=== PATIENT | female | born 1950 | race Caucasian/White ===

== ENCOUNTER 2016-06-19 15:50 | Emergency (ER) | payer MEDICARE, BC ==
[2016-06-19 16:06] VITALS: BP 126/83
[2016-06-19] MEDS ORDERED: Acetaminophen/HYDROcodone 325-10 MG Tab PO ONE ×2 (16:54→17:45)
[2016-06-19] MEDS ORDERED: Promethazine 25 MG Tab PO ONE (16:54)
--- NOTE | 2016-06-19 17:39 | EDM.PDOC ---
Scribed by Abigail Mccabe 06/19/16 [id number] for Justus Lundberg MD ED HISTORY OF PRESENT ILLNESS - General Chief Complaint: Chest Pain Stated Complaint: feel hit the chest has pain [id number] Time Seen by Provider: 06/19/16 16:04 Source of Information: Reports: Patient, RN, RN notes reviewed History Limitations: Reports: No limitations - History of Present Illness INITIAL COMMENTS - FREE TEXT/NARRATIVE: Complaining of midsternal chest wall pain sustained from a fall yesterday. Patient reports that she tripped and fell on the corner of her deck steps and landed with a direct blow to her chest. Today she began having painful breathing. Symptom Onset Date: 06/18/16 Severity: severe Location, General: Reports: chest (wall) Quality: Reports: Ache Improves with: Reports: None Worsens with: Reports: None Associated Symptoms (General): Reports: no other symptoms - Related Data Allergies/ADRs: Allergies Allergy/AdvReac Type Severity Reaction Status Date / Time codeine Allergy Disorientat Verified 06/19/16 16:06 ion sulfamethoxazole Allergy Itching Verified 06/19/16 16:06 [From Bactrim] trimethoprim [From Bactrim] Allergy Itching Verified 06/19/16 16:06 Home Meds: Home Meds RABEprazole [Aciphex] 20 mg PO DAILY 10/10/13 [History] Triamterene/Hydrochlorothiazid [Triamterene-HCTZ 37.5-25 MG] 1 cap PO DAILY [History] Venlafaxine HCl [Venlafaxine ER] 37.5 mg PO DAILY 10/10/13 [History] Zolpidem [Ambien] 10 mg PO BEDTIME 10/10/13 [History] Past Medical History Cardiovascular History: Reports: Hypertension Social & Family History - Family History Family Medical History: Noncontributory - Tobacco Use Smoking Status *Q: Never Smoker Second Hand Smoke Exposure: No - Alcohol Use Days Per Week of Alcohol Use: 0 - Recreational Drug Use Recreational Drug Use: No ED ROS GENERAL - Review of Systems Review Of Systems: ROS reveals no pertinent complaints other than HPI. ED EXAM, GENERAL - Physical Exam Exam: See Below Exam Limited By: No limitations General Appearance: alert, WD/WN, no apparent distress Neck: normal inspection, supple, non-tender, full range of motion Respiratory/Chest: other (decreased breath sounds bilateral bases. Tenderness to palpation over middle 1.3 of sternam. No visible bruising, swelling or deformity. Skin is intact. ) Cardiovascular: normal peripheral pulses, regular rate, rhythm, no edema, no gallop, no JVD, no murmur, no rub GI/Abdominal: normal bowel sounds, soft, non tender, no organomegaly, no distention, no abnormal bruit, no mass Back Exam: normal inspection, full range of motion, NT Extremities: normal inspection, normal range of motion, non-tender, normal capillary refill, no pedal edema Neurological: alert, oriented, CN II-XII intact, normal cognition, normal gait, normal reflexes, no motor/sensory deficits Psychiatric: normal affect, normal mood Skin Exam: Warm, Dry, Intact, Normal color, No rash Course - Vital Signs Last Recorded V/S: Last Vital Signs Temp 36.3 C 06/19/16 16:02 Pulse 80 06/19/16 16:02 Resp 16 06/19/16 16:02 BP 126/83 06/19/16 16:02 Pulse Ox 96 06/19/16 16:02 - Orders/Labs/Meds Meds: Medications Discontinued Medications Generic Name Dose Route Start Last Admin Trade Name Freq PRN Reason Stop Dose Admin Hydrocodone Bitart/Acetaminophen 1 tab 06/19/16 16:54 06/19/16 16:59 [place] 325-10 Mg PO 06/19/16 16:55 1 tab ONETIME ONE Administration Promethazine HCl 25 mg 06/19/16 16:54 06/19/16 16:59 Phenergan PO 06/19/16 16:55 25 mg ONETIME ONE Administration - Radiology Interpretation Free Text/Narrative:: CT chest: Subtle contour abnormality in the anterior cortex of the sternum may represent essentially nondisplaced sternal fracture. Mild opacities in the right middle lobe and lingula and left lower lobe may represent atelectasis or contusion. Departure - Departure Time of Disposition: 17:34 Disposition: Home, Self-Care 01 Condition: fair Clinical Impression: Sternal contusion Qualifiers: Encounter type: initial encounter Qualified Code(s): S20.20XA - Contusion of thorax, unspecified, initial encounter Accidental fall Qualifiers: Encounter type: initial encounter Qualified Code(s): W19.XXXA - Unspecified fall, initial encounter Instructions: Chest Contusion, [id number] Forms: ED Department Discharge Additional Instructions: Ki[place] 5mg/325mg. Ice to area of pain. Deep breaths several times a day per hour while awake to reduce risk of pneumonia. Follow up in clinic if not improving in 7-10 days. I have read and agree with the documentation that has been completed regarding this visit. By signing this record, I attest that the documentation was completed in my physical presence and is an accurate record of the encounter.
[2016-06-19] MEDS ORDERED: Acetaminophen/HYDROcodone 325-10 MG Tab ONE (17:45)
== END 2016-06-19 17:54 | disposition home or self-care (01) ==
LOC: DL.ED 15:50
DX: S20.219A Contusion of unspecified front wall of thorax, initial encounter (principal); I10 Essential (primary) hypertension; Z88.6 Allergy status to analgesic agent; Z88.8 Allergy status to other drugs, medicaments and biological substances; Z79.899 Other long term (current) drug therapy; W01.0XXA Fall on same level from slipping, tripping and stumbling without subsequent striking against object, initial encounter
CPT/HCPCS: 71250; 99284; A9270; 99283

== ENCOUNTER 2017-09-30 18:56 | Emergency (ER) | payer MEDICARE, BC ==
[2017-09-30 19:05] VITALS: BP 132/63
--- NOTE | 2017-09-30 19:53 | EDM.PDOC ---
ED HPI GENERAL MEDICAL PROBLEM - General Chief Complaint: Chest Pain Stated Complaint: CHEST PAIN [id number] Time Seen by Provider: 09/30/17 19:51 Source of Information: Reports: Patient History Limitations: Reports: No Limitations - History of Present Illness INITIAL COMMENTS - FREE TEXT/NARRATIVE: states was heading out to eat and suddenly developed epigast pain which she had before with h/o GERD then it went up into her jaw and got sweaty. but now all gone and feels fine. Left Chest Pain Score (Numeric/FACES): 4 - Related Data Allergies Allergy/AdvReac Type Severity Reaction Status Date / Time codeine Allergy Disorientat Verified 06/19/16 16:06 ion sulfamethoxazole Allergy Itching Verified 06/19/16 16:06 [From Bactrim] trimethoprim [From Bactrim] Allergy Itching Verified 06/19/16 16:06 Home Meds: Home Meds Triamterene/Hydrochlorothiazid [Triamterene-HCTZ 37.5-25 MG] 1 cap PO DAILY [History] Venlafaxine HCl [Venlafaxine ER] 37.5 mg PO DAILY 10/10/13 [History] Zolpidem [Ambien] 10 mg PO BEDTIME 10/10/13 [History] Cholecalciferol (Vitamin D3) [Vitamin D] 1 tab PO DAILY 09/30/17 [History] Gabapentin [Neurontin] 300 mg PO BEDTIME 09/30/17 [History] Pantoprazole Sodium [Protonix] 40 mg PO DAILY 09/30/17 [History] traMADol [Ultram] 50 mg PO QID PRN 09/30/17 [History] Past Medical History Cardiovascular History: Reports: Hypertension Gastrointestinal History: Reports: GERD Other [employer] History: hysterectomy Musculoskeletal History: Reports: Arthritis, Fibromyalgia Psychiatric History: Reports: Depression Social & Family History - Family History Family Medical History: Noncontributory - Tobacco Use Smoking Status *Q: Never Smoker - Caffeine Use Caffeine Use: Reports: Soda - Recreational Drug Use Recreational Drug Use: No ED ROS GENERAL - Review of Systems Review Of Systems: ROS reveals no pertinent complaints other than HPI. ED EXAM, GENERAL - Physical Exam Exam: See Below Exam Limited By: No Limitations General Appearance: Alert, WD/WN, No Apparent Distress Ears: Hearing Grossly Normal Throat/Mouth: Normal Voice, No Airway Compromise Head: Atraumatic Neck: Non-Tender, Full Range of Motion Respiratory/Chest: No Respiratory Distress Cardiovascular: Regular Rate, Rhythm GI/Abdominal: Soft, Non-Tender, Abnormal Bowel Sounds, Other (hyper BS). No: Distended, Guarding, Rigid, Rebound, Tender Neurological: Alert, Oriented, Normal Cognition, Normal Gait, No Motor/Sensory Deficits Psychiatric: Normal Affect, Normal Mood Skin Exam: Warm, Dry, Normal Color Lymphatic: No Adenopathy Course - Vital Signs Last Recorded V/S: Last Vital Signs Temp 36.1 C 09/30/17 19:05 Pulse 64 09/30/17 19:05 Resp 14 09/30/17 19:05 BP 132/63 09/30/17 19:05 Pulse Ox 100 09/30/17 19:05 - Orders/Labs/Meds Orders: Active Orders 24 hr Category Date Time Status EKG 12 Lead [EKG Documentation Completion] [RC] STAT Care 09/30/17 19:12 Active Labs: Laboratory Tests 09/30/17 09/30/17 Range/Units 19:20 19:20 WBC 5.4 (5.0-10.0) 10^3/uL RBC 3.95 L (4.2-5.4) 10^6/uL Hgb 12.4 (12.0-16.0) g/dL Hct 36.5 L (37.0-47.0) % MCV 92.4 D (80-100) fL MCH 31.4 (27.0-34.0) pg MCHC 34.0 (33.0-35.0) g/dL Plt Count 309 (150-450) 10^3/uL Neut % (Auto) 34.7 L (42.2-75.2) % Lymph % (Auto) 53.0 H (20.5-50.1) % [place] % (Auto) 8.0 (2-8) % Eos % (Auto) 2.8 (1.0-3.0) % Baso % (Auto) 1.5 H (0.0-1.0) % Sodium 137 (135-145) mmol/L Potassium 3.9 (3.6-5.0) mmol/L Chloride 100 L (101-111) mmol/L Carbon Dioxide 29.0 (21.0-31.0) mmol/L Anion Gap 11.9 BUN 15 (7-18) mg/dL Creatinine 1.1 (0.6-1.3) mg/dL Est Cr Clr Drug Dosing 38.18 mL/min Estimated GFR (MDRD) 49 BUN/Creatinine Ratio 13.63 Glucose 87 (74-105) mg/dL Calcium 9.4 (8.4-10.2) mg/dl Total Bilirubin 0.4 (0.2-1.0) mg/dL AST 19 (10-42) IU/L ALT 14 (10-60) IU/L Alkaline Phosphatase 63 (42-121) IU/L Troponin I < 0.02 (0.00-0.02) ng/ml Total Protein 6.9 (6.7-8.2) g/dl Albumin 3.9 (3.2-5.5) g/dl Globulin 3.0 Albumin/Globulin Ratio 1.30 - Re-Assessments/Exams Free Text/Narrative Re-Assessment/Exam: 09/30/17 20:23 re-exam; still pain free. likes to go. Departure - Departure Time of Disposition: 20:23 Disposition: Home, Self-Care 01 Condition: Good Clinical Impression: Gastroesophageal reflux disease Qualifiers: Esophagitis presence: with esophagitis Qualified Code(s): K21.0 - Gastro- esophageal reflux disease with esophagitis Instructions: Gastroesophageal Reflux Disease, Adult, [id number] Forms: ED Department Discharge Additional Instructions: 1) rest 2) recheck if there is any change or concern - My Orders Last 24 Hours: My Active Orders 09/30/17 19:12 EKG 12 Lead [EKG Documentation Completion] [RC] STAT - Assessment/Plan Last 24 Hours: My Active Orders 09/30/17 19:12 EKG 12 Lead [EKG Documentation Completion] [RC] STAT
[2017-09-30 20:05] LABS: ANION GAP 11.9; CHLORIDE,CL 100 mmol/L (101-111); SODIUM,NA 137 mmol/L (135-145)
== END 2017-09-30 20:31 | disposition home or self-care (01) ==
LOC: DL.ED 18:56
DX: K21.0 Gastro-esophageal reflux disease with esophagitis (principal); I10 Essential (primary) hypertension; F32.9 Major depressive disorder, single episode, unspecified; Z79.899 Other long term (current) drug therapy; Z88.5 Allergy status to narcotic agent; Z88.2 Allergy status to sulfonamides; Z88.1 Allergy status to other antibiotic agents
CPT/HCPCS: 36415; 80053; 84484; 85025; 93005; 93010; 99283; 99285